=== PATIENT | male | born 1985 | race Caucasian/White ===

== ENCOUNTER 2016-09-08 01:45 | Emergency (ER) | payer OTHER ==
[2016-09-08 03:32] LABS: HEMOGLOBIN 13.8 gm/dl (14.0-17.5); RED BLOOD COUNT 4.33 M/UL (4.20-5.50); WHITE BLOOD COUNT 11.3 K/UL (4.5-11.0)
[2016-09-08 03:53] LABS: BUN/CREATININE RATIO 23 (0-10)
== END 2016-09-08 07:05 | disposition home or self-care (01) ==
LOC: ER1 01:45
PROVIDERS: Family Medicine
DX: E11.649 Type 2 diabetes mellitus with hypoglycemia without coma (principal)
CPT/HCPCS: 36415; 80053; 82962; 85025; 96360; 96361; 99283

== ENCOUNTER 2016-09-29 04:31 | Observation (INO) | payer OTHER ==
[~2016-09-29] VITALS: Ht 180.3 cm; Wt 84.8 kg
[2016-09-29 06:28] LABS: HEMOGLOBIN 14.2 gm/dl (14.0-17.5); RED BLOOD COUNT 4.43 M/UL (4.20-5.50); WHITE BLOOD COUNT 14.2 K/UL (4.5-11.0)
[2016-09-29 06:52] LABS: BUN/CREATININE RATIO 20 (0-10)
[2016-09-29] MEDS ORDERED: ALLERGY RELIEF10 M3 PO (10:09)
[2016-09-29] MEDS ORDERED: OMEPRAZOLE20 MG PO (10:10)
[2016-09-29] MEDS ORDERED: LOPRESSOR 25 MG25 MG PO (10:10)
[2016-09-29] MEDS ORDERED: HUMALOG100 UNIT/1 SQ (10:12)
== END 2016-09-29 17:13 | disposition left against medical advice (07) ==
LOC: ER1 04:31 → CCU 07:29 → ZEROF 07:29 → CCU 09:54
PROVIDERS: Family Medicine; ADMIT Internal Medicine
DX: E11.649 Type 2 diabetes mellitus with hypoglycemia without coma (principal); T38.3X5A Adverse effect of insulin and oral hypoglycemic [antidiabetic] drugs, initial encounter; E87.6 Hypokalemia; D72.829 Elevated white blood cell count, unspecified; I10 Essential (primary) hypertension; E78.5 Hyperlipidemia, unspecified; F17.210 Nicotine dependence, cigarettes, uncomplicated; Z87.19 Personal history of other diseases of the digestive system
CPT/HCPCS: 36415; 71010; 80053; 80307; 82533; 82962; 83036; 83605; 83735; 84439; 84443; 84681; 85025; 87040; 96361; 96374; 96376; 99285; G0378; G0480

== ENCOUNTER 2020-07-18 17:56 | Emergency (ER) | payer OTHER ==
[~2020-07-18 17:56] MED LIST: ADMELOG100 UNIT/1 SC; ADMELOG100 UNIT/1 SQ; ALLERGY RELIEF10 M3 PO; BASAGLAR K100 UNIT/1 SC; BASAGLAR K100 UNIT/1 SQ; BUPRENORPHIN-N1 EACH SL; CLARITIN10 MG PO; GLUCAGON IV/SC 11 MG IM; GLUTOSE 1537.5 GM PO; HUMALOG 10100 UNITS/ SC; HUMALOG100 UNIT/1 SC; IBUPROFEN800 MG PO; LANTUS INS100 UTS/M1 SQ; LOPRESSOR 25 MG25 MG PO; ONDANSETRON ODT4 MG PO; PERCOCET 5-3251 EACH PO; PRINIVIL5 MG PO; PROTONIX40 MG PO; TUMS300 MG PO; VENTOLIN HFA 66.7 GM INH; ZANTAC150 MG PO
== END 2020-07-18 20:09 | disposition left against medical advice (07) ==
LOC: ER1 17:56
DX: R11.10 Vomiting, unspecified (principal); Z53.21 Procedure and treatment not carried out due to patient leaving prior to being seen by health care provider

== ENCOUNTER → 2021-10-16 | Outpatient (CLI) | payer OTHER | LOC: RAD 12:38 | DX: W19.XXXA Unspecified fall, initial encounter (principal); M79.89 Other specified soft tissue disorders | CPT/HCPCS: 73630 ==

== ENCOUNTER 2022-01-07 21:01 | Emergency (ER) | payer OTHER ==
[2022-01-07 21:48] LABS: HEMOGLOBIN 14.5 gm/dl (14.0-17.5); RED BLOOD COUNT 4.67 M/UL (4.20-5.50); WHITE BLOOD COUNT 11.9 K/UL (4.5-11.0)
[2022-01-07 22:11] LABS: BUN/CREATININE RATIO 12 (0-10)
== END 2022-01-07 23:14 | disposition home or self-care (01) ==
LOC: ER1 21:01
PROVIDERS: Nurse Practitioner
DX: S09.90XA Unspecified injury of head, initial encounter (principal); R07.81 Pleurodynia; E11.9 Type 2 diabetes mellitus without complications; F17.210 Nicotine dependence, cigarettes, uncomplicated; W22.8XXA Striking against or struck by other objects, initial encounter; Z88.0 Allergy status to penicillin; Y92.009 Unspecified place in unspecified non-institutional (private) residence as the place of occurrence of the external cause
CPT/HCPCS: 70450; 71045; 80053; 82962; 85025; 93005; 99284

== ENCOUNTER 2022-02-09 11:09 | Inpatient (IN) | payer OTHER ==
[~2022-02-09] VITALS: Ht 188 cm; Wt 90.7 kg
[2022-02-09 11:58] LABS: BUN/CREATININE RATIO 20 (0-10)
[2022-02-09 12:06] LABS: RED BLOOD COUNT 4.98 M/UL (4.20-5.50); WHITE BLOOD COUNT 28.7 K/UL (4.5-11.0)
[2022-02-09] MEDS ORDERED: ADMELOG100 UNIT/1 SC (13:27)
[2022-02-09] MEDS ORDERED: [UNRECOGNIZED DRUG - SUPPLY] SQ (13:28)
[2022-02-09] MEDS ORDERED: OMEPRAZOLE40 MG PO (13:29)
[2022-02-09 15:53] LABS: HEMOGLOBIN 14.8 gm/dl (14.0-17.5); RED BLOOD COUNT 4.67 M/UL (4.20-5.50); WHITE BLOOD COUNT 29.6 K/UL (4.5-11.0)
[2022-02-09 16:33] LABS: BUN/CREATININE RATIO 18 (0-10)
[2022-02-10 05:15] LABS: HEMOGLOBIN 14.8 gm/dl (14.0-17.5); RED BLOOD COUNT 4.64 M/UL (4.20-5.50)
[2022-02-10 05:17] LABS: WHITE BLOOD COUNT 18.6 K/UL (4.5-11.0)
[2022-02-10 14:05] LABS: BUN/CREATININE RATIO 22 (0-10)
[2022-02-11 05:25] LABS: RED BLOOD COUNT 3.88 M/UL (4.20-5.50); WHITE BLOOD COUNT 10.5 K/UL (4.5-11.0)
[2022-02-11 05:26] LABS: HEMOGLOBIN 12.2 gm/dl (14.0-17.5)
[2022-02-11 06:19] LABS: BUN/CREATININE RATIO 30 (0-10)
[2022-02-11 14:33] LABS: BUN/CREATININE RATIO 27 (0-10)
[2022-02-12 05:09] LABS: HEMOGLOBIN 12.8 gm/dl (14.0-17.5); RED BLOOD COUNT 4.1 M/UL (4.20-5.50); WHITE BLOOD COUNT 8.3 K/UL (4.5-11.0)
[2022-02-12 05:32] LABS: BUN/CREATININE RATIO 26 (0-10)
[2022-02-13 05:45] LABS: HEMOGLOBIN 12.2 gm/dl (14.0-17.5); RED BLOOD COUNT 3.92 M/UL (4.20-5.50); WHITE BLOOD COUNT 9.8 K/UL (4.5-11.0)
[2022-02-13 06:12] LABS: BUN/CREATININE RATIO 22 (0-10)
[2022-02-14 02:15] LABS: HEMOGLOBIN 11.7 gm/dl (14.0-17.5); RED BLOOD COUNT 3.71 M/UL (4.20-5.50); WHITE BLOOD COUNT 8.4 K/UL (4.5-11.0)
[2022-02-14 02:46] LABS: BUN/CREATININE RATIO 18 (0-10)
[2022-02-14] MEDS ORDERED: HUMALOG 10100 UNITS/ SC (09:52)
[2022-02-14] MEDS ORDERED: LANTUS INS100 UTS/M1 SQ (09:52)
== END 2022-02-14 13:01 | disposition home or self-care (01) | DRG 637 ==
LOC: ER1 11:09 → CCU 13:02 → M/S 13:02 → CDU 13:02 → CCU 14:14 → M/S 02-13 14:36
PROVIDERS: Internal Medicine; Internal Medicine Critical Care Medicine; Internal Medicine Pulmonary Disease; Physician Assistant; Physician Assistant Medical; ADMIT Internal Medicine
PROC: 3E033XZ Introduction of Vasopressor into Peripheral Vein, Percutaneous Approach (ICD-10-PCS; principal; 2022-02-09)
PROC: 0BH17EZ Insertion of Endotracheal Airway into Trachea, Via Natural or Artificial Opening (ICD-10-PCS; 2022-02-09)
PROC: 5A1945Z Respiratory Ventilation, 24-96 Consecutive Hours (ICD-10-PCS; 2022-02-09)
DX: E10.10 Type 1 diabetes mellitus with ketoacidosis without coma (principal); G93.41 Metabolic encephalopathy; J96.01 Acute respiratory failure with hypoxia; R57.1 Hypovolemic shock; N17.0 Acute kidney failure with tubular necrosis; N39.0 Urinary tract infection, site not specified; J98.11 Atelectasis; I10 Essential (primary) hypertension; E78.5 Hyperlipidemia, unspecified; E87.6 Hypokalemia; E83.39 Other disorders of phosphorus metabolism; F19.10 Other psychoactive substance abuse, uncomplicated; Z88.0 Allergy status to penicillin; Z82.49 Family history of ischemic heart disease and other diseases of the circulatory system; Z83.3 Family history of diabetes mellitus; Z91.14 Patient's other noncompliance with medication regimen; Z79.899 Other long term (current) drug therapy; Z79.4 Long term (current) use of insulin
CPT/HCPCS: 31500; 36415; 36600; 71045; 73620; 80048; 80053; 80202; 80307; 81001; 82009; 82550; 82553; 82803; 82947; 82962; 83036; 83605; 83615; 83690; 83735; 84100; 84132; 84484; 85025; 85027; 85384; 85610; 86140; 87040; 87070; 87081; 87086; 87205; 92526; 92610; 93005; 94002; 94003; 94760; 96361; 96374; 96375; 97110; 97110-GP-CQ; 97116; 97116-GP-CQ; 97162; 97166; 99285; C9113; J1650; J2185; J2250; J2704; J3370; J3480; J7030; J7070